=== PATIENT | female | born 1945 | race Caucasian/White ===

== ENCOUNTER 2021-04-17 05:32 | Emergency (ER) | payer MEDICARE, OTHER ==
[2021-04-17 08:58] LABS: BASOPHIL 0.2 % (0-2); EOSINOPHIL 0 % (0-7); HCT 28.2 % (37.0-47.0); HGB 8.9 g/dl (12.5-16.0); MCH 26.7 pg (25.0-31.0); MCHC 31.6 g/dL (32.0-36.0); MCV 84.7 fL (78.0-100.0); MONOCYTE 10.6 % (0-12); MPV 9.9 fL (6.0-9.5); NRBC 0; PLT 135 K/uL (150-400); RBC 3.33 M/uL (4.20-5.40); RDW 17.2 % (11.5-14.0); WBC 6.6 K/uL (4.0-10.5)
[2021-04-17 09:03] LABS: INR 4.79 (0.9-1.2); PROTHROMBIN TIME 43.7 SECONDS (11.8-13.4)
[2021-04-17 09:06] LABS: BILIRUBIN - TOTAL 0.8 mg/dL (0.2-1.0); CREATININE 4.26 mg/dL (0.51-0.95); GLOBULIN (CALCULATION) 3.9 g/dL; POTASSIUM 4.7 mmol/L (3.5-5.1); TOTAL PROTEIN 5.9 g/dL (6.4-8.2)
[2021-04-17 09:47] LABS: PTT 82.1 SECONDS (24.4-34.7)
== END 2021-04-17 09:50 | disposition other institution (70) ==
LOC: FER 05:32
PROVIDERS: Internal Medicine
DX: U07.1 COVID-19 (principal); K92.2 Gastrointestinal hemorrhage, unspecified; D62 Acute posthemorrhagic anemia; N18.6 End stage renal disease; Z98.890 Other specified postprocedural states; Z86.79 Personal history of other diseases of the circulatory system; Z95.1 Presence of aortocoronary bypass graft
CPT/HCPCS: 36415; 36430; 80053; 85025; 85610; 85730; 86922; 87076; 87088; 87186; J7030; J7120; P9016; U0002